=== PATIENT | female | born 1945 | race African-American/Black ===

== ENCOUNTER 2019-02-02 13:03 | Emergency (ER) | payer MEDICARE ==
[~2019-02-02] VITALS: Ht 152.4 cm; Wt 70.3 kg
--- NOTE | 2019-02-02 13:08 | NUR ---
ED Nurse Note: Patient brought in to ER by friend from home. Patient stated she fell on her right knee and hit her left side on a laundry basket yesterday around 4:30pm. Patient rates pain at 9/10. Patient aao x 4 and ambulatory. No acute distress noted.
[2019-02-02] MEDS ORDERED: ZESTRIL20 MG ORAL (13:25)
[2019-02-02] MEDS ORDERED: AMLODIPINE BESY10 MG ORAL ×2 (13:25→15:41)
[2019-02-02] MEDS ORDERED: Ketorolac 30mg Inj IM ONE (14:00)
--- NOTE | 2019-02-02 14:00 | NUR ---
ED Nurse Note: Patient with x-ray.
--- NOTE | 2019-02-02 15:16 | Emergency Room Report ---
History of Present Illness General Chief Complaint: Lower Extremity Injury Source: Patient Present Illness HPI 73 year-old female accompanied by friend complaining of left rib pain and right knee pain status post trip and fall last night. Denies LOC or head injury. Denies SOB, chest pain, back pain. H/o bilateral knee replacement. Has been applying ice to affected area. States swelling has improved. Ambulatory. H/o HTN- recently moved here. Ran out of HTN medication one month ago. Allergies: Coded Allergies: PENICILLINS (Verified Allergy, Unknown, 02/02/19) Patient History Past Medical History: HTN Past Surgical History: other - knee Social History: Denies: smoking, alcohol use, drug use Nursing Documentation-[facility] Past Medical History: No History, Except For Hx Hypertension: Yes Review of Systems All Other Systems: negative except mentioned in HPI Physical Exam Vital Signs Date Time Temp Pulse Resp B/P (MAP) Pulse Ox O2 Delivery O2 Flow Rate FiO2 02/02/19 13:20 98.4 76 19 178/101 (126) 98 Room Air Sp02 EP Interpretation: reviewed General Appearance: no apparent distress, alert, GCS 15, non-toxic Respiratory: chest non-tender, lungs clear, normal breath sounds, speaking full sentences Cardiovascular #1: regular rate, rhythm, no edema Musculoskeletal: other - right knee: no deformity, mild anterior swelling, ecchymosis and tenderness. good ROM with pain. mild tenderness to left lateral ribs 6 and 7. Medical Decision Making PA Attestation This patient was seen under the direct supervision of Dr. Black, who directed all aspects of care and diagnostic interpretation. Diagnostic Impression: Primary Impression: Contusion of knee Qualified Codes: S80.01XA - Contusion of right knee, initial encounter Additional Impressions: Rib pain on left side Medication refill ER Course ED course HPI: 73 year-old female accompanied by friend complaining of left rib pain and right knee pain status post trip and fall last night. Denies LOC or head injury. Denies SOB, chest pain, back pain. H/o bilateral knee replacement. Has been applying ice to affected area. States swelling has improved. Ambulatory. H/o HTN- recently moved here. Ran out of HTN medication one month ago. Ddx: fracture, sprain, contusion HPI & PE consistent with: Right knee contusion. Left rib pain. Medication refill Orders/ Interventions: Soft tissue swelling on right knee x-ray. No fracture or dislocation. Negative left rib series, no pneumothorax on chest x-ray. Lungs clear to auscultation bilaterally. Knee Immobilizer placed on right knee. The patient was neurovascularly intact prior to and status post application of the knee immobilizer Patients blood pressure was elevated (above 120/80) but appears stable without evidence of hypertensive emergency, hypertensive urgency or end-organ failure. I had discussion with the patient about the risks of hypertension. Disposition: Rx for amlodipine 10mg and lisinopril 20mg (2 week supply given). RICE. acetaminophen for pain PRN. At this time pt. is stable for d/c to home. Will provide printed patient care instructions, and any necessary prescriptions. I have advised the patient to follow up with his/her primary care physician for outpatient monitoring and treatment for hypertension in 2-3 days. I have instructed the patient to return to the ER for any new or worsening symptoms including chest pain, shortness of breath, headache, blurred vision, confusion, nausea, vomiting or LOC. Care plan and follow up instructions have been discussed with the patient prior to discharge. Please note that this Emergency Department Report was dictated using [employer] technology software, occasionally this can lead to erroneous entry secondary to interpretation by the dictation equipment. Other X-Ray Diagnostic Results Other X-Ray Diagnostic Results #1: X-Ray ordered: right knee # of Views/Limited Vs Complete: 3 View Indication: Swelling EP Interpretation: Yes PA Xray: Interpretation reviewed, by supervising - Dr. Black Interpretation: no dislocation, no fractures, other - prepatellar soft tissue swelling. Cemented total knee arthroplasty Impression: No acute disease Electronically Signed by: Bridgette Vo PA-C Other X-Ray Diagnostic Results #2: X-Ray ordered: left ribs + CXR # of Views/Limited Vs Complete: 3 View Indication: Pain EP Interpretation: Yes PA Xray: Interpretation reviewed Interpretation: no dislocation, no fractures Impression: No acute disease - Negative left unilateral rib series Electronically Signed by: Bridgette Vo PA-C Last Vital Signs Date Time Temp Pulse Resp B/P (MAP) Pulse Ox O2 Delivery O2 Flow Rate FiO2 02/02/19 13:20 98.4 76 19 178/101 (126) 98 Room Air Status: unchanged Disposition: HOME, SELF-CARE Condition: Stable Scripts Lisinopril (LISINOPRIL*) 20 Mg Tablet 20 MG ORAL DAILY, #14 TAB Prov: Bridgette Vo 02/02/19 Amlodipine Besylate* (AMLODIPINE BESYLATE*) 10 Mg Tablet 10 MG ORAL DAILY, #14 TAB Prov: Bridgette Vo 02/02/19 Patient Instructions: Chest Contusion, [id number], Hypertension, [id number] , Knee Immobilizer, [id number] Additional Instructions: Followup with PCP in 2 days return to ER if worsening symptoms, new symptoms or sudden change in condition. Bridgette Vo Feb 02, 2019 15:15
--- NOTE | 2019-02-02 15:38 | Diagnostic Imaging Report ---
Indication: Right knee Pain 3 views of the right knee were obtained. Findings: No acute fracture, malalignment, or joint effusion are identified. Cemented total knee arthroplasty demonstrated. There is soft tissue swelling in the anterior part of the knee. The bones are osteopenic. Impression: Prepatellar soft tissue swelling. Cemented total knee arthroplasty
--- NOTE | 2019-02-02 15:39 | Diagnostic Imaging Report ---
Indication: Left sided rib pain. Trauma. Findings: 4 views of the left chest wall was obtained for evaluation of the ribs. There is no acute fracture identified. There is no soft tissue swelling demonstrated. The lung is essentially clear. There is no pneumothorax. The costophrenic angle is sharp. Other osseous structures visualized are unremarkable. Impression: Negative left unilateral rib series
[2019-02-02] MEDS ORDERED: LISINOPRIL20 MG ORAL (15:41)
[2019-02-02 15:57] VITALS: BP 183/91
--- NOTE | 2019-02-02 15:57 | NUR ---
ER DISCHARGE NOTE: Patient is cleared to be discharged per ERMD, pt is aox4, on room air, with stable vital signs. pt was given dc and prescription instructions, pt was able to verbalize understanding, pt id band removed. pt ambulatory and stable upon discharge. knee immobilizer applied to patient's right knee.
== END 2019-02-02 15:57 | disposition home or self-care (01) ==
LOC: EMR 14:00
DX: S80.01XA Contusion of right knee, initial encounter (principal); R07.81 Pleurodynia; Z76.0 Encounter for issue of repeat prescription; I10 Essential (primary) hypertension; W01.0XXA Fall on same level from slipping, tripping and stumbling without subsequent striking against object, initial encounter; Y92.9 Unspecified place or not applicable; Z96.653 Presence of artificial knee joint, bilateral; Z88.0 Allergy status to penicillin
CPT/HCPCS: 71101; 73562; 96372; 99284; J1885